=== PATIENT | male | born 1955 | race Caucasian/White ===

== ENCOUNTER 2017-10-05 10:17 | Outpatient (CLI) | payer MEDICAID ==
[~2017-10-05 10:17] MED LIST: CYCL-1 PO; DOCU-28 PO; MELO-100 PO; SERT50TA PO
[2017-10-05 10:46] LABS: ABG BASE EXCESS -2.6 mmol/L (-2.0-3.0); ABG HCO3 20.8 mmol/L (22.0-26.0); ABG OXYGEN SATURATION 96.6 % (95-98); ABG PO2 (T) 90.9 mmHg (83-108); ALLEN'S TEST Positive; FCOHb 0.3 % (0.5-1.5); FMetHb 0.3 % (0.3-1.12); TOTAL HEMOGLOBIN 13.4 G/dl (14.0-18.0)
[2017-10-05] MEDS ORDERED: albuterol 2.5 MG/3 ML nebule ONE (11:26)
[2017-10-05] MEDS ORDERED: albuterol 2.5 MG/3 ML nebule NEB PRN (12:30)
== END 2017-10-05 23:59 | disposition home or self-care (01) ==
LOC: RT 10:17
PROVIDERS: ATTEND Internal Medicine Pulmonary Disease
DX: J44.9 Chronic obstructive pulmonary disease, unspecified (principal); R06.02 Shortness of breath
CPT/HCPCS: 36600; 82803; 85018; 94060; 94640; 94727; 94729; 94760

== ENCOUNTER 2020-08-01 05:44 | Day surgery (SDC) | payer MEDICARE ==
[2020-07-25 11:01] LABS: BASOPHILS # (AUTO) 0.1 X10'3 (0-0.2); BASOPHILS % (AUTO) 1.1 % (0-1); EOSINOPHILS # (AUTO) 0.3 X10'3 (0-0.9); EOSINOPHILS % (AUTO) 5.1 % (0-6); LYMPHOCYTES # (AUTO) 1.5 X10'3 (1.1-4.8); LYMPHOCYTES % (AUTO) 25.9 % (21-51); MEAN CORPUSCULAR HEMOGLOBIN 33.3 PG (27.0-31.0); MEAN CORPUSCULAR HGB CONC 33.4 g/dL (33.0-36.5); MEAN CORPUSCULAR VOLUME 99.8 FL (78-98); MEAN PLATELET VOLUME 7.9 FL (7.4-10.4); MONOCYTES # (AUTO) 0.5 X10'3 (0-0.9); MONOCYTES % (AUTO) 9.1 % (2-12); NEUTROPHILS # (AUTO) 3.4 X10'3 (1.8-7.7); NEUTROPHILS % (AUTO) 58.8 % (42-75); PRE OP HEMATOCRIT 43.2 % (42.0-52.0); PRE OP HEMOGLOBIN 14.4 g/dL (14.0-17.9); PRE OP PLATELET COUNT 262 X10'3 (140-440); RED BLOOD COUNT 4.33 X10'6 (4.70-6.10); RED CELL DISTRIBUTION WIDTH 14.4 % (11.5-14.5)
[2020-07-25 11:21] LABS: ALBUMIN 3.7 G/DL (3.4-5.0); ALBUMIN/GLOBULIN RATIO 0.9 (1.1-1.5); ALKALINE PHOSPHATASE 85 IU/L (46-116); BLOOD UREA NITROGEN 24 MG/DL (7-18); BUN/CREATININE RATIO 22.9 (5.4-32.0); CALCIUM 8.8 MG/DL (8.5-10.1); CHLORIDE 105 MMOL/L (99-107); CREATININE 1.05 MG/DL (0.60-1.10); PRE OP ALT 42 U/L (30-65); PRE OP ANION GAP 8 (8-16); PRE OP AST 34 U/L (10-37); PRE OP BILIRUB, TOTAL 0.4 MG/DL (0.0-1.0); PRE OP GLUCOSE 100 MG/DL (70-104); PRE OP POTASSIUM 5.1 MMOL/L (3.4-5.1); PRE OP SODIUM 143 MMOL/L (135-145); TOTAL CARBON DIOXIDE 30.5 MMOL/L (24-32); TOTAL PROTEIN 7.6 G/DL (6.4-8.2); eGFR 71 ML/MIN
[2020-08-01] VITALS (10 sets, daily range): BP systolic 96–127; BP diastolic 63–80
[~2020-08-01] VITALS: Ht 177.8 cm; Wt 88.5 kg
[~2020-08-01 05:44] MED LIST changes: +ALBU18HF2 INH; +AMLO10TA13 PO; +ASPI-845 PO; +ATOR-2 PO; +BACL20TA7 PO; -CYCL-1 PO; -DOCU-28 PO; +FEXO-124 PO; +FLUT16SP20 NAS; +GABA600T13 PO; +KEN0.1O TOP; -MELO-100 PO; +MONT10TA21 PO; +OMEP20CA15 PO; -SERT50TA PO; +VENL150C58 PO; +ceFAZolin 2gm in dextrose, iso 50 ML IV ONE; +famotidine 20mg tablet PO ONE; +ringers solution, lacted 1,000 ML IV SCH
[2020-08-01] MEDS ORDERED: LIDOcaine 1% (10mg/ml) 2ml vial ONE (06:19)
[2020-08-01] MEDS ORDERED: propofol inj 20 ML IV ONE (07:32)
[2020-08-01] MEDS ORDERED: LIDOcaine 2% (20mg/ml) 5ml vial ONE (07:32)
[2020-08-01] MEDS ORDERED: midazolam 2 mg/2 ml injection ONE (07:32)
[2020-08-01] MEDS ORDERED: fentaNYL/PF 50MCG/1 ML 2ML syringe ONE (07:32)
[2020-08-01] MEDS ORDERED: sevoflurane 250ml liquid IH ONE (07:42)
[2020-08-01] MEDS ORDERED: dexamethasone sod phosphate 10mg/ml inj ONE (07:42)
[2020-08-01] MEDS ORDERED: ondansetron/PF 4mg/2ml inj ONE (07:42)
[2020-08-01] MEDS ORDERED: ePHEDrine 50MG/ML INJ. ONE (08:38)
--- NOTE | 2020-08-01 08:48 | NUR ---
Received from OR via [facility] , accompanied by Anesthesiologist CONCETTA and report given by Anesthesiolgist. PATIENT WITH 20G PIV IN LEFT UE RUNNING LR AT 100. PATIENT WITH 3 WAY PABLO IRRIGATION, URINE IS CLEAR IN COLOR. PATIENT IWMAURICIO NO C.O. AT THIS TIME. VSS. Addendum: 08/01/20 at 0910 by Juan Jose Garvin RN, RN Amended: Links added.
[2020-08-01] MEDS ORDERED: meperidine/PF 25mg/ml syringe IV PRN ×3 (08:55)
[2020-08-01] MEDS ORDERED: ringers solution, lacted 1,000 ML IV SCH (08:55)
[2020-08-01] MEDS ORDERED: morphine 4 MG/ML inj SYRINge IV PRN (08:55)
[2020-08-01] MEDS ORDERED: ondansetron/PF 4mg/2ml inj IV PRN (08:55)
[2020-08-01] MEDS ORDERED: morphine 2 MG/ML inj. syringe IV PRN (08:55)
[2020-08-01] MEDS ORDERED: proCHLORperazine 10 MG/2 ml inj IV PRN (08:55)
--- NOTE | 2020-08-01 09:58 | NUR ---
I HAVE REVIEWED D/C INSTRUCTIONS WITH PATIENT AND FAMILY AND THEY HAVE VERBALIZED UNDERSTANDING. PATIENT D/C HOME WITH ALL BELONGINGS AND FAMILY GAVE TRANSPORT HOME. PABLO CATH BAG AND LEG BAG SENT WITH PATIENT. PATIENT PRESCRIPTION CALLED TO [facility]. PRESCRIPTION FOR PAIN PILLS GIVEN TO PATIENT. DAUGHTER GAVE PATIENT A RIDE HOME Addendum: 08/01/20 at 1012 by Juan Jose Garvin RN, RN Amended: Links added.
== END 2020-08-01 09:58 | disposition home or self-care (01) ==
LOC: PAS 05:44
PROVIDERS: ATTEND Urology
DX: D49.4 Neoplasm of unspecified behavior of bladder (principal); N40.1 Benign prostatic hyperplasia with lower urinary tract symptoms; N13.8 Other obstructive and reflux uropathy; Z20.828 Contact with and (suspected) exposure to other viral communicable diseases; J44.9 Chronic obstructive pulmonary disease, unspecified; K21.9 Gastro-esophageal reflux disease without esophagitis; N40.0 Benign prostatic hyperplasia without lower urinary tract symptoms; Z85.51 Personal history of malignant neoplasm of bladder; Z85.89 Personal history of malignant neoplasm of other organs and systems; F41.9 Anxiety disorder, unspecified; F32.9 Major depressive disorder, single episode, unspecified; M81.0 Age-related osteoporosis without current pathological fracture; I10 Essential (primary) hypertension; Z88.2 Allergy status to sulfonamides; Z88.8 Allergy status to other drugs, medicaments and biological substances; Z98.890 Other specified postprocedural states; Z87.891 Personal history of nicotine dependence; Z79.899 Other long term (current) drug therapy; Z86.73 Personal history of transient ischemic attack (TIA), and cerebral infarction without residual deficits; Z79.82 Long term (current) use of aspirin; Z72.89 Other problems related to lifestyle
CPT/HCPCS: 36415; 52224; 52276; 71046; 80053; 82948; 85025; 87635; 93005; J1100; J2001; J2250; J2405; J2704; J3010; J7120; 88305; A4346; A4355; A4402; A4618